=== PATIENT | male | born 1970 | race African-American/Black ===

== ENCOUNTER 2019-12-19 11:12 | Outpatient (CLI) | payer OTHER ==
--- NOTE | 2019-12-19 11:57 | RAD ---
Exam: XR Ankle Lt 2 View HISTORY: Disability. Injured by a forklift. COMPARISON: 12/08/2017. FINDINGS: Extensive postoperative changes of the left tibia and fibula are noted with multiple plates and screw s transfixing the distal left tibia and fibula overall similar to the prior study and without hardware complication. There is lucency seen involving the lower transverse screws extending through the tibia and fibula, this is unchanged from prior study may be related to mach effect. Surgical clips are again seen along the medial aspect distal tibial diaphysis. No fracture or dislocation is s een. 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 There is prominent subcutaneous soft tissue swelling about the distal left lower extremity and greate r medially. IMPRESSION: 1. Prominent subcutaneous soft tissue swelling about the distal left lower extremity greater medially and anteriorly. 2. No acute osseous abnormality is seen. 3. Extensive postoperative changes distal left tibia and fibula unchanged from study in 2018.
--- NOTE | 2019-12-19 13:07 | RAD ---
LEFT FOOT 2 VIEWS: Date: 12/19/2019 HISTORY: Disability. FINDINGS: Bones show osteopenia. Postoperative changes involving the distal tibia and fibula with screws and elizondo rdware transfixing the distal tibia and fibula. Mild degenerative change at the tarsometatarsal joints. There is a hallux valgus at the first MTP joint with joint narrowing and mild DJD. The other MTP join ts are unremarkable. No fracture or acute abnormality. IMPRESSION: 1. Bones show osteopenia. 2. Hallux valgus at the first MTP joint with mild DJD. POS: [facility]
== END 2019-12-19 11:13 | disposition home or self-care (01) ==
LOC: BICRAD 11:12
PROVIDERS: ATTEND Internal Medicine
DX: Z02.71 Encounter for disability determination (principal); M85.872 Other specified disorders of bone density and structure, left ankle and foot; M19.072 Primary osteoarthritis, left ankle and foot; M20.12 Hallux valgus (acquired), left foot; M79.89 Other specified soft tissue disorders; Z98.890 Other specified postprocedural states